=== PATIENT | female | born 1975 | race Two or more races ===

== ENCOUNTER 2016-11-24 19:55 | Emergency (ER) | payer SELFPAY ==
[2016-11-24 20:17] VITALS: BP 124/78; BMI 35.2
[2016-11-24] MEDS ORDERED: TORADOL 60 MG VIAL IM ONE (20:42)
[2016-11-24] MEDS ORDERED: ZOFRAN INJ 4 MG VIAL IVP ONE (20:42)
--- NOTE | 2016-11-24 20:46 | DR.GENAD ---
HPI - PCP Primary Care Physician: NFMoise - HPI Comment HPI Comment: PATIENT HAD SYMTOMS ONE WEEK AGO AND RESOLVE WITHOUT SEEKING MEDICAL HELP. SENIES FEVER. NO HISTORY OF MIGRAINE HEADACHE OR TRAUMA. - Complaint/Symptoms Chief Complaint Doctors Comments: HRADACHE, LEFT ARM NUMBNESS TIMES FEW HOURS. HAVING NAUSEA AND VOMITING ALSO. NO FEVER. Chief Complaint:: PT C/O PAIN IN RT HEAD AND NUMBNESS IN LT ARM AND LT LIP STARTED TODAY - Nurses notes reviewed Nurses Notes Review: Yes - Source History Provided: Patient - Mode of Arrival Mode of Arrival: Ambulatory - Timing Onset of Chief Complaint: 11/24/16 Came on: Suddenly - Duration Duration: Constant Duration: Hours - Severity Severity: Moderate PMH - PMH Past Medical History: No Past Surgical History: Yes Surgical History: - Family History History of Family Medical Conditions: No - Social History Does any household member use tobacco: No Alcohol Use: None Do you use any recreational Drugs:: No Lives With: Family Lives Where: Home - infectious screening In the last 2 months have you had wt loss of >10#?: NO Have you had fever, night sweats or hemotysis?: No Have you traveled outside the country in the last 6 months?: No Isolation: Standard ROS - Review of Systems Constitutional: No Symptoms Reported. negative: Chills, Fever Eyes: No Symptoms Reported. negative: Eye Pain, Discharge ENTM: No Symptoms Reported. negative: Ear Pain, Nose Discharge, Nose Congestion , Throat Pain Respiratoy: No Symptoms Reported Cardiovascular: No Symptoms Reported Gastrointestinal/Abdominal: No Symptoms Reported Genitourinary: No Symptoms Reported Neurological: Headache, Numbness Musculoskeletal: No Symptoms Reported Integumentary: No Symptoms Reported Hematologic/Lymphatic: No Symptoms Reported Endocrine: No Symptoms Reported All Other Systems: Reviewed and Negative PE - Vital Signs Vitals: Temperature 98.6 F Pulse Rate 83 Respiratory Rate 18 Blood Pressure 124/78 O2 Sat by Pulse Oximetry 100 - General Limitations: No Limitations General Appearance: Alert - Head Head Exam: Normal Inspection - Eyes Eye exam: Normal Appearance - ENT ENT Exam: Normal External Ear Exam External Ear Exam: Normal External Inspection TM/Canal Exam: Bilateral Normal Nose Exam: Normal Nose Exam Mouth Exam: Normal Inspection Throat Exam: Normal Inspection - Neck Neck Exam: Trachea Midline - Chest Chest Inspection: Symmetric Chest Wall Rise - Respiratory Respiratory Exam: Normal Lung Sounds Bilat Respiratory Exam: Bilateral Clear to Auscultation - Cardiovascular Cardiovascular Exam: Regular Rate, Normal Rhythm, Normal Heart Sounds - Abdominal Exam Abdominal Exam: Normal Inspection, Normal Bowel Sounds, Soft. negative: Tenderness - Extremities Extremities Exam: Normal Inspection - Back Back Exam: Normal Inspection - Neurologic Neurological Exam: Alert, Oriented X3 - Psychiatric Psychiatric Exam: Anxious - Skin Skin Exam: Normal Color MDM - Differential Diagnosis Differential Diagnosis: HEADACHE, LEFT SIDED NUMBNESS Course - Treatment Treatment: SEE ORDERS. IM MEDS FOR NAUSEA AND PAIN, IMPROVING. FIORICET PO BEFORE DISCHARGE. - Reevaluation 1st: Improved - Education/Counseling Education/Counseling: Patient, Education Educated On: Treatment, Diagnosis ROR - XRAY XRAY Interpreted by: Radiologist XRAY Findings: REPORT DISCUSS WITH PATIENT VIA HER [employer]. - Diagnosis Discharge Problem: Numbness Headache Qualifiers: Headache type: unspecified Headache chronicity pattern: acute headache Intractability: intractable Qualified Code(s): R51 - Headache - Discharge Plan Disposition: 01 HOME, SELF-CARE Condition: Stable Prescriptions: Baifprkfga-Hdeeqowonerxt-Ykofk [Fioricet 50-300-40 mg] 1 cap PO Q8H PRN #15 cap PRN Reason: Migraine Headache Ondansetron HCl [Zofran Tab 4 mg] 4 mg PO Q8H PRN #12 tab PRN Reason: Nausea/Vomiting - Follow ups/Referrals Follow ups/Referrals: COLLEEN BROWN [STAFF PHYSICIAN] - 11/25/16 JOEL HERNANDEZ [STAFF PHYSICIAN] - 11/25/16 N[facility],Mira [Primary Care Provider] - 11/25/16 - Instructions Instructions: General Headache Without Cause, Xsvs-py-Joga Additional Instructions: RETURN TO ED IF WORSE.
[2016-11-24] MEDS ORDERED: ZOFRAN INJ 4 MG VIAL IM ONE (20:48)
[2016-11-24] MEDS ORDERED: ZOFRAN INJ 4 MG VIAL ONE (20:49)
[2016-11-24] MEDS ORDERED: TORADOL 60 MG VIAL ONE (20:49)
--- NOTE | 2016-11-24 21:19 | CT ---
EXAM: CT BRAIN WITHOUT CONTRAST INDICATION: Headache COMPARISION: No Priors TECHNIQUE: Routine axial CT of the brain was performed without intravenous contrast. FINDINGS: The cerebral and cerebellar cortex are normal. The ventricular system is nondilated. No intra or ext ra-axial mass or hemorrhage. The chau-white junction is preserved. There is no evidence of subacute ischemic change. The basilar cisterns are clear. The skull is intact. The mastoid air cells are clear. IMPRESSION: Normal brain CT examination Reported By:
[2016-11-24] MEDS ORDERED: FIORICET TAB PO ONE ×2 (22:02→22:08)
== END 2016-11-24 22:14 | disposition home or self-care (01) ==
LOC: ER 19:55
DX: R51 Headache (principal); R20.0 Anesthesia of skin
CPT/HCPCS: 70450; 96372; 99282; 99283; J1885; J2405